=== PATIENT | female | born 1985 | race Caucasian/White ===

== ENCOUNTER 2016-08-04 13:46 | Emergency (ER) | payer BC | END 2016-08-04 18:35 | disposition home or self-care (01) | LOC: ER 13:46 | DX: O20.0 Threatened abortion (principal); O23.11 Infections of bladder in pregnancy, first trimester; Z3A.01 Less than 8 weeks gestation of pregnancy; Z79.899 Other long term (current) drug therapy | CPT/HCPCS: 36415; 76817; 80053; 81001; 84702; 85025; 86901; 87088; 87491; 87591; 87800 ==